=== PATIENT | female | born 1995 ===

== ENCOUNTER 2017-12-24 02:29 | Emergency (ER) | payer MEDICAID ==
[2017-12-24 02:32] VITALS: BMI 22.8
[2017-12-24 02:42] VITALS: RESP 18; TEMP 98; O2SAT 99
--- NOTE | 2017-12-24 02:50 | ED PDOC ---
Arrival/HPI <Michael Reyes - Last Filed: 12/24/17 04:27> - General Historian: Patient - History of Present Illness Time/Duration: < week Symptom Onset: Sudden Symptom Course: Unchanged Quality: Pressure <Checo Willams - Last Filed: 12/24/17 04:36> - General Chief Complaint: Chest Pain Time Seen by Provider: 12/24/17 02:34 - History of Present Illness Narrative History of Present Illness (Text): 12/24/17 02:46 Patient is a 22 yo F with no significant PMH presents to ED with a 3 day history of chest pain and palpitations. Patient states that the pain is midsternal, stabbing in quality, and does not radiate. Patient states that it has been intermittent over the last 3 days and generally happens at night with tonight being the worst. Patient denies any alleviating or aggravating factors. Patient denies any recent sick contacts. Patient denies coughing, trauma, SOB, n /v/d, abdominal pain, fever, chills, GOLD, or tenderness. PMD: Checo Gray) Past Medical History - Provider Review Nursing Documentation Reviewed: Yes - Cardiac Hx Cardiac Disorders: No - Pulmonary Hx Respiratory Disorders: No - Neurological Hx Neurological Disorder: No - HEENT Hx HEENT Disorder: No - Renal Hx Renal Disorder: No - Endocrine/Metabolic Hx Endocrine Disorders: No - Hematological/Oncological Hx Blood Disorders: No - Integumentary Hx Dermatological Disorder: No - Musculoskeletal/Rheumatological Hx Musculoskeletal Disorders: No - Gastrointestinal Hx Gastrointestinal Disorders: No - Genitourinary/Gynecological Hx Genitourinary Disorders: No - Psychiatric Hx Psychophysiologic Disorder: No Hx Substance Use: No <Checo Willams - Last Filed: 12/24/17 04:36> Family/Social History - Physician Review Nursing Documentation Reviewed: Yes Family/Social History: No Known Family HX Smoking Status: Never Smoked Hx Alcohol Use: No Hx Substance Use: No <Checo Willams - Last Filed: 12/24/17 04:36> Allergies/Home Meds <Michael Reyes - Last Filed: 12/24/17 04:27> <Checo Willams - Last Filed: 12/24/17 04:36> Allergies/Adverse Reactions: Allergies No Known Allergies Allergy (Verified 12/24/17 02:31) Review of Systems - Physician Review All systems were reviewed & negative as marked: Yes (12 point ROS reviewed and is negative other than what is stated in HPI.) <Checo Willams - Last Filed: 12/24/17 04:36> Physical Exam Vital Signs Reviewed: Yes Temperature: Afebrile Blood Pressure: Normal Pulse: Regular Respiratory Rate: Normal Appearance: Positive for: Non-Toxic Pain Distress: Mild Mental Status: Positive for: Alert and Oriented X 3 - Systems Exam Head: Present: Atraumatic, Normocephalic Pupils: Present: PERRL Extroacular Muscles: Present: EOMI Conjunctiva: Present: Normal Mouth: Present: Moist Mucous Membranes Neck: Present: Normal Range of Motion Respiratory/Chest: Present: Clear to Auscultation. No: Wheezes, Rales, Rhonchi Cardiovascular: Present: Regular Rate and Rhythm, Normal S1, S2, Other ( Midsternum tender to palpation). No: Murmurs, Rub, Gallop Abdomen: No: Tenderness, Distention, Rebound, Guarding Back: Present: Normal Inspection Upper Extremity: Present: Normal Inspection. No: Cyanosis, Edema Lower Extremity: Present: Normal Inspection. No: Edema Neurological: Present: GCS=15, CN II-XII Intact, Speech Normal Skin: Present: Warm, Dry, Normal Color. No: Rashes Psychiatric: Present: Alert, Oriented x 3, Normal Insight, Normal Concentration <Checo Willams - Last Filed: 12/24/17 04:36> Vital Signs Temp Pulse Resp BP Pulse Ox 12/24/17 02:38 98 F 63 18 117/57 L 99 Medical Decision Making <Michael Reyes - Last Filed: 12/24/17 04:27> <Checo Willams - Last Filed: 12/24/17 04:36> ED Course and Treatment: Impression: Pt seen and evaluated with biomedical instrument technician. Pt, with no significant past medical history, presented for chest pain and palpitations x3 days. Aware and agree with HPI, clinical findings, plan, and management. Plan: -- EKG -- Chest X-ray -- Labs, cardiac enzymes -- Motrin -- Reassess and disposition (Michael Reyes) 12/24/17 02:52 22 yo F presents to ED with 3 day history of chest pain. Plan: - CBC, CMP - Coags - Cardiac ISO - EKG - CXR - POC urine - Reassess and disposition 12/24/17 02:55 EKG reviewed shows sinus bradycardia with rate of 55 bpm. 12/24/17 04:03 CXR reviewed by myself showed no active disease. 12/24/17 04:34 Workup negative. Results were discussed with patient and likely diagnosis of costochondritis. Patient advised of risk factors. Patient is medically stable and discharged. Patient advised to follow up with PMD and will be given rx for Motrin. (Checo Willams) - Lab Interpretations Lab Results: 12/24/17 03:31 12/24/17 03:31 Lab Results 12/24/17 03:31: Sodium 140, Potassium 3.8, Chloride 103, Carbon Dioxide 27, Anion Gap 13, BUN 12, Creatinine 0.5 L, Est GFR ( Amer) > 60, Est GFR ( Non-Af Amer) > 60, Random Glucose 90, Calcium 9.2, Magnesium 1.8, Total Bilirubin 0.4, AST 23, ALT 23, Alkaline Phosphatase 47, Lactate Dehydrogenase 369, Total Creatine Kinase 42, Troponin I < 0.01, Total Protein 6.6, Albumin 3.6 , Globulin 3.0, Albumin/Globulin Ratio 1.2 12/24/17 03:31: WBC 9.0, RBC 4.00, Hgb 12.5, Hct 36.1, MCV 90.3, MCH 31.3, MCHC 34.6, RDW 12.1, Plt Count 258, MPV 9.4, Gran % 47.5 L, Lymph % (Auto) 39.8 H, [place] % (Auto) 10.1 H, Eos % (Auto) 2.4, Baso % (Auto) 0.2, Gran # 4.26, Lymph # (Auto) 3.6 H, [place] # (Auto) 0.9 H, Eos # (Auto) 0.2, Baso # (Auto) 0.02 - RAD Interpretation Radiology Orders: 12/24/17 02:43 CHEST PORTABLE [RAD] Stat - Medication Orders Current Medication Orders: Discontinued Medications Ibuprofen (Motrin Tab) 600 mg PO STAT STA Stop: 12/24/17 02:56 Last Admin: 12/24/17 03:42 Dose: 600 mg MAR Pain/Vitals Document 12/24/17 03:42 RD (Rec: 12/24/17 03:42 [facility] [id number]) Pain Reassessment Is This A Pain ReAssessment? No Sleep Is patient sleeping during reassessment? No Presence of Pain Presence of Pain Yes - PA / DEVELOPMENT CONSULTANT / Resident Statement MD/DO has reviewed & agrees with the documentation as recorded. MD/DO has examined the patient and agrees with the treatment plan. <Michael Reyes - Last Filed: 12/24/17 04:27> Disposition/Present on Arrival <Michael Reyes - Last Filed: 12/24/17 04:27> - Present on Arrival Any Indicators Present on Arrival: No History of DVT/PE: No History of Uncontrolled Diabetes: No Urinary Catheter: No History of Decub. Ulcer: No History Surgical Site Infection Following: None - Disposition Have Diagnosis and Disposition been Completed?: Yes Disposition Time: 04:36 Patient Plan: Discharge <Checo Willams - Last Filed: 12/24/17 04:36> - Disposition Diagnosis: Costochondral chest pain Disposition: HOME/ ROUTINE Patient Problems: Current Active Problems Problem Status Onset Costochondral chest pain Acute Condition: STABLE Discharge Instructions (ExitCare): Chest Pain That Is Not Caused by the Heart ( [place]) Additional Instructions: 1. Follow up with PMD within 1 week 2. Use Motrin as needed for pain; take with food 3. Return to ED if symptoms worsen [place], thank you for letting us take care of you today. Your provider was Michael Reyes MD and you were treated for CHEST PAIN. The emergency medical care you received today was directed at your acute symptoms. If you were prescribed any medication, please fill it and take as directed. It may take several days for your symptoms to resolve. Return to the Emergency Department if your symptoms worsen, do not improve, or if you have any other problems. Please contact your doctor or call one of the physicians/clinics you have been referred to that are listed on the Patient Visit Information form that is included in your discharge packet. Bring any paperwork you were given at discharge with you along with any medications you are taking to your follow up visit. Our treatment cannot replace ongoing medical care by a primary care provider outside of the emergency department. Thank you for allowing the [facility] team to be part of your care today. Prescriptions: Ibuprofen [Motrin] 600 mg PO TID PRN #15 tab PRN Reason: Pain, Moderate (4-7) Referrals: Lencho Scherer MD [Primary Care Provider] - Follow up with primary Forms: Occipital (Italian)
[2017-12-24 03:40] LABS: BASO # 0.02 K/mm3 (0.0-2.0); BASO % 0.2 % (0.0-3.0); EOS # 0.2 (0.0-0.7); EOS % 2.4 % (1.5-5.0); GRAN # 4.26 (1.4-6.5); GRAN % 47.5 % (50.0-68.0); HEMOGLOBIN 12.5 g/dL (12.0-16.0); LYMPH # 3.6 (1.2-3.4); LYMPH % 39.8 % (22.0-35.0); MEAN CELL VOLUME 90.3 fl (80.0-105.0); MEAN CORPUSCULAR HEMOGLOBIN 31.3 pg (25.0-35.0); MEAN CORPUSCULAR HGB CONC 34.6 g/dl (31.0-37.0); MEAN PLATELET VOLUME 9.4 fl (7.0-11.0); MONO # 0.9 (0.1-0.6); MONO % 10.1 % (1.0-6.0); RED CELL DISTRIBUTION WIDTH 12.1 % (11.5-14.5)
[2017-12-24 03:49] LABS: ALB/GLOB RATIO 1.2 (1.1-1.8)
[2017-12-24 03:59] LABS: TROPONIN I < 0.01 ng/mL
[2017-12-24 04:19] LABS: ALBUMIN 3.6 g/dL (3.0-4.8); ALT/SGPT 23 U/L (7-56); AST/SGOT 23 U/L (14-36); BLOOD UREA NITROGEN 12 mg/dL (7-21); CALCIUM 9.2 mg/dL (8.4-10.5); GFR AFRICAN-AMERICAN > 60; GFR NON-AFRICAN AMERICAN > 60
[2017-12-24 04:48] VITALS: BP 123/70; PULSE 76
--- NOTE | 2017-12-24 09:23 | RAD ---
HISTORY: chest pain COMPARISON: No prior. FINDINGS: LUNGS: No active pulmonary disease. PLEURA: No significant pleural effusion identified, no pneumothorax apparent. CARDIOVASCULAR: Normal. OSSEOUS STRUCTURES: No significant abnormalities. VISUALIZED UPPER ABDOMEN: Normal. OTHER FINDINGS: None. IMPRESSION: No active disease.
--- NOTE | 2017-12-24 17:19 | CARD ---
APPROVED REPORT EKG Measurement Heart [id number] <Conclusion> Sinus bradycardia Otherwise normal ECG
== END 2017-12-24 04:43 | disposition home or self-care (01) ==
LOC: ED 02:29
DX: R07.1 Chest pain on breathing (principal)